=== PATIENT | female | born 1955 | race Caucasian/White ===

== ENCOUNTER 2016-05-26 07:56 | Day surgery (SDC) | payer BC, OTHER ==
[~2016-05-26 07:56] MED LIST: Cefuroxime 10 MG/ML SYRINGE EYERT SCH; Lidocaine 1% PF 2 ML SDV INJECT SCH; Pilocarpine 4% Ophth Soln 15 ML Bot EYERT SCH; Proparacaine 0.5% Ophth Soln 15 ML Bottle EYEBOTH SCH; Tetracaine 0.5% 2 ML Bottle EYERT SCH
[2016-05-26] MEDS: Polymyxin B/Trimethoprim 10 ML Bottle EYERT SCH ×3 (08:28→10:05)
[2016-05-26] MEDS: Brimonidine 0.2% Ophth Soln 5 ML Bottle EYERT SCH ×3 (08:33→10:05)
[2016-05-26] MEDS: Phenylephrine 2.5% Ophth Soln 2 ML Bot EYERT SCH ×5 (08:36→09:50)
--- NOTE | 2016-05-26 09:12 | PCM.PREANE ---
Preanesthetic Assessment - Anesthesia/Transfusion/Family Hx Anesthesia History: Prior Anesthesia Without Reaction Family History of Anesthesia Reaction: No Transfusion History: No Prior Transfusion(s) Intubation History: Unknown - Review of Systems General: No Symptoms Pulmonary: No Symptoms Gastrointestinal: No symptoms Neurological: Numbness (lower extremities, left pinky finger numb for years ) Other: Reports: None - Physical Assessment NPO Status Date: 05/25/16 NPO Status Time: 18:30 O2 Sat by Pulse Oximetry: 99 Respiratory Rate: 16 Vital Signs: Last Vital Signs Temp 36.1 C 05/26/16 08:05 Pulse 61 05/26/16 08:05 Resp 16 05/26/16 08:05 BP 133/63 05/26/16 08:05 Pulse Ox 99 05/26/16 08:05 Height: 1.6 m Weight: 68.039 kg ASA Class: 2 Mental Status: Alert & Oriented x3 Airway Class: Mallampati = 1 Dentition: Reports: Normal Dentition Thyro-Mental Finger Breadths: 3 Mouth Opening Finger Breadths: 5 ROM/Head Extension: Full Lungs: Clear to auscultation, Normal respiratory effort Cardiovascular: Regular Rate, Regular Rhythm - Allergies Allergies/Adverse Reactions: Allergies Allergy/AdvReac Type Severity Reaction Status Date / Time latex Allergy Cannot Verified 05/25/16 13:10 Remember nickel Allergy Cannot Verified 05/25/16 13:10 Remember Penicillins Allergy Cannot Verified 05/25/16 13:10 Remember hay fever Allergy Cannot Uncoded 05/25/16 13:10 Remember - Blood Blood Available: No - Anesthesia Plan Pre-Op Medication Ordered: None - Acknowledgements Anesthesia Type Planned: MAC Pt an Appropriate Candidate for the Planned Anesthesia: Yes Alternatives and Risks of Anesthesia Discussed w Pt/Guardian: Yes Pt/Guardian Understands and Agrees with Anesthesia Plan: Yes PreAnesthesia Questionnaire HEENT History: Reports: None Cardiovascular History: Reports: None Respiratory History: Reports: None Gastrointestinal History: Reports: None Genitourinary History: Reports: None Other OB/BYN History: postmenapausal Musculoskeletal History: Reports: None Neurological History: Reports: None Psychiatric History: Reports: None Endocrine/Metabolic History: Reports: Hypothyroidism Hematologic History: Reports: None Immunologic History: Reports: None Oncologic (Cancer) History: Reports: None Dermatologic History: Reports: None - Infectious Disease History Infectious Disease History: Reports: None - Past Surgical History Other Head Surgeries/Procedures: multiple, reviewed - SUBSTANCE USE Smoking Status *Q: Never Smoker Second Hand Smoke Exposure: Yes Recreational Drug Use History: No - HOME MEDS Home Medications: Home Meds Calcium Carbonate/Vitamin D3 [Caltrate 600 + D Soft Chew Tab] 1 tab PO DAILY [History] Fexofenadine [Brittany] 180 mg PO DAILY 05/25/16 [History] Levothyroxine Sodium [Levothyroxine Sodium] 75 mcg PO DAILY 05/25/16 [History] Lutein 20 mg PO DAILY 05/25/16 [History] Magnesium 250 mg PO DAILY 05/25/16 [History] Multivitamin [Multivitamins] 1 tab PO DAILY 05/25/16 [History] - CURRENT (IN HOUSE) MEDS Current Meds: Current Medications Brimonidine Tartrate (Alphagan 0.2% Ophth Soln) 0 ml EYERT ASDIRECTED SARINA Stop: 05/26/16 18:00 Last Admin: 05/26/16 08:33 Dose: 1 drop Cefuroxime Sodium (Zinacef) 0 mg EYERT ASDIRECTED SARINA Stop: 05/26/16 18:00 Lidocaine HCl (Xylocaine-Mpf 1%) 1 ml INJECT ASDIRECTED SARINA Stop: 05/26/16 18:00 Phenylephrine HCl (Gerardo-Synephrine 2.5% Ophth Soln) 0 ml EYERT ASDIRECTED SARINA Stop: 05/26/16 18:00 Last Admin: 05/26/16 08:53 Dose: 1 drop Pilocarpine HCl (Pilocar 4% Ophth Soln) 0 ml EYERT ASDIRECTED SARINA Stop: 05/26/16 18:00 Polymyxin/Trimethoprim Sulfate (Polytrim Ophth Soln) 0 ml EYERT ASDIRECTED SARINA Stop: 05/26/16 18:00 Last Admin: 05/26/16 09:05 Dose: 1 drop Proparacaine HCl (Proparacaine 0.5% Ophth Soln) 0 ml EYEBOTH ASDIRECTED SARINA Stop: 05/26/16 18:00 Tetracaine (Pontocaine 0.5% Ophth Drops) 0 ml EYERT ASDIRECTED SARINA Stop: 05/26/16 18:00 Tropicamide (Mydriacyl 1% Ophth Soln) 0 ml EYERT ASDIRECTED SARINA Stop: 05/26/16 18:00 Last Admin: 05/26/16 08:58 Dose: 1 drop
--- NOTE | 2016-05-26 10:08 | PCM48HPAN ---
Post Anesthesia Note - EVALUATION WITHIN 48HRS OF ANESTHETIC Vital Signs in Normal Range: Yes Patient Participated in Evaluation: Yes Respiratory Function Stable: Yes Airway Patent: Yes Cardiovascular Function Stable: Yes Hydration Status Stable: Yes Pain Control Satisfactory: Yes Nausea and Vomiting Control Satisfactory: Yes Mental Status Recovered: Yes
[2016-05-26 10:33] VITALS: BP 113/70
== END 2016-05-26 10:20 | disposition home or self-care (01) ==
LOC: JD.SDS 07:56
PROVIDERS: ATTEND Ophthalmology
DX: H26.9 Unspecified cataract (principal); Z98.890 Other specified postprocedural states; E07.9 Disorder of thyroid, unspecified; Z79.899 Other long term (current) drug therapy
CPT/HCPCS: 66984; A9270; C1780; J0697

== ENCOUNTER 2017-02-17 10:11 | Emergency (ER) | payer OTHER, BC ==
[2017-02-17 10:42] VITALS: BP 136/91
--- NOTE | 2017-02-17 10:53 | EDM.PDOC ---
ED HPI GENERAL MEDICAL PROBLEM - General Chief Complaint: Upper Extremity Injury/Pain Stated Complaint: FALL, LEFT SHOULDER PAIN Time Seen by Provider: 02/17/17 10:53 Source of Information: Reports: Patient - History of Present Illness INITIAL COMMENTS - FREE TEXT/NARRATIVE: Patient is here today for evaluation of left chest and shoulder pain. She states that around 9:30 this morning she was walking outside and slipped on the ice. She states that she primarily landed on her left shoulder and was unable to move this due to significant pain immediately. Patient notes numbness and tingling to her left upper extremity into her hand, she is able to move this but has pain up through her shoulder. She is unable to move her shoulder at all. No elbow pain whatsoever. She notes mild pain to right thumb. She states that she feels like she hit the left side of her face, states that this was a bit of a "soft" as her shoulder to most of the impact. She denies any facial pain or headache. She did not lose consciousness. Left Shoulder Pain Score (Numeric/FACES): 10 - Related Data Allergies Allergy/AdvReac Type Severity Reaction Status Date / Time latex Allergy Redness Verified 02/17/17 10:43 nickel Allergy Other Verified 02/17/17 10:43 Penicillins Allergy Rash Verified 02/17/17 10:43 hay fever Allergy Cannot Uncoded 02/17/17 10:43 Remember Home Meds: Home Meds Calcium Carbonate/Vitamin D3 [Caltrate 600 + D Soft Chew Tab] 1 tab PO DAILY [History] Fexofenadine [Brittany] 180 mg PO ASDIRECTED 05/25/16 [History] Levothyroxine Sodium [Levothyroxine Sodium] 75 mcg PO DAILY 05/25/16 [History] Lutein 20 mg PO DAILY 05/25/16 [History] Magnesium 250 mg PO DAILY 05/25/16 [History] Multivitamin [Multivitamins] 1 tab PO DAILY 05/25/16 [History] Acetaminophen/HYDROcodone [[place] 325-5 MG] 1 tab PO Q4H #30 tablet 02/17/17 [Rx] Past Medical History HEENT History: Reports: None Cardiovascular History: Reports: None Respiratory History: Reports: None Gastrointestinal History: Reports: None Genitourinary History: Reports: None Other OB/BYN History: postmenapausal Musculoskeletal History: Reports: None Neurological History: Reports: None Psychiatric History: Reports: None Endocrine/Metabolic History: Reports: Hypothyroidism Hematologic History: Reports: None Immunologic History: Reports: None Oncologic (Cancer) History: Reports: None Dermatologic History: Reports: None - Infectious Disease History Infectious Disease History: Reports: None Social & Family History - Tobacco Use Smoking Status *Q: Never Smoker Second Hand Smoke Exposure: Yes - Caffeine Use Caffeine Use: Reports: None - Recreational Drug Use Recreational Drug Use: No Review of Systems - Review of Systems Review Of Systems: See Below Constitutional: Reports: No Symptoms Respiratory: Reports: No Symptoms Cardiovascular: Reports: No Symptoms Musculoskeletal: Reports: Other (Left shoulder pain) Skin: Reports: No Symptoms Neurological: Reports: Other (Numbness and tingling to left upper extremity/ hand.) Psychiatric: Reports: No Symptoms ED EXAM, GENERAL - Physical Exam Exam: See Below Exam Limited By: No Limitations General Appearance: Alert, WD/WN, Mild Distress Peripheral Pulses: 2+: Radial (L) Extremities: Normal Capillary Refill, Other (Left shoulder without obvious deformity. The shoulder is swollen and a bit raised. She is unable to move this at all due to extreme pain.) Neurological: Alert, Oriented, No Motor/Sensory Deficits (Patient notes numbness , good sensation to light touch and she is able to move her hand. She does have pain to her shoulder with hand movement.) Psychiatric: Normal Affect Skin Exam: Warm, Dry, Intact Course - Vital Signs Last Recorded V/S: Last Vital Signs Temp 97.2 F 02/17/17 10:38 Pulse 71 02/17/17 10:38 Resp 18 02/17/17 10:38 BP 136/91 H 02/17/17 10:38 Pulse Ox 98 02/17/17 10:38 - Orders/Labs/Meds Orders: Active Orders 24 hr Category Date Time Status Shoulder Comp Lt [CR] Stat Exams 02/17/17 11:29 Taken Meds: Medications Discontinued Medications Generic Name Dose Route Start Last Admin Trade Name Freq PRN Reason Stop Dose Admin Hydromorphone HCl 0.5 mg 02/17/17 11:02 02/17/17 11:19 Dilaudid IVPUSH 02/17/17 11:03 0.5 mg ONETIME ONE Administration - Re-Assessments/Exams Free Text/Narrative Re-Assessment/Exam: Will give patient 0.5 mg of Dilaudid for pain management obtained x-ray of left shoulder. 02/17/17 11:16 X-ray reviewed with Dr. Roman and treatment plan formulated. Xray demonstrates a non-displaced fracture of the proximal humerus, no dislocation. Patient will be placed in a shoulder sling and will follow-up with Dr. Wasserman this week. Physical therapy order was given as well to prevent adhesive capsulitis. Recommend ice, ibuprofen, hydrocodone will be given for breakthrough pain as well. She will follow-up with orthopedics, return to emergency room if needed. 02/17/17 12:37 Departure - Departure Time of Disposition: 12:30 Disposition: Home, Self-Care 01 Condition: Fair Clinical Impression: Fracture of humerus Qualifiers: Encounter type: initial encounter Humerus Location: proximal Fracture type: closed Fracture alignment: nondisplaced - Discharge Information Prescriptions: Acetaminophen/HYDROcodone [[place] 325-5 MG] 1 tab PO Q4H #30 tablet Instructions: How to Use a Sling, [id number], Shoulder Pain, [id number] Referrals: Radha Nelson MD [Primary Care Provider] - Forms: ED Department Discharge Additional Instructions: You have a non-displaced fracture of your humerus. I recommend ibuprofen 600 mg every 8 hours. Ice 15 minutes every 2-3 hours as needed. Hydrocodone for breakthrough pain. Call to schedule an appointment with orthopedics for follow-up with Dr. Wasserman at [phone] I recommend starting physical therapy to keep your shoulder moving next week as well. Try to move her shoulder around in all directions at least twice daily to prevent frozen shoulder. Follow-up with orthopedics or certainly return to the emergency room if needed. - My Orders Last 24 Hours: My Active Orders 02/17/17 11:29 Shoulder Comp Lt [CR] Stat - Assessment/Plan Last 24 Hours: My Active Orders 02/17/17 11:29 Shoulder Comp Lt [CR] Stat
[2017-02-17] MEDS ORDERED: HYDROmorphone 0.5 MG/0.5 ML Syringe IVPUSH ONE (11:02)
--- NOTE | 2017-02-17 13:19 | CR ---
Left shoulder: Two views of the left shoulder were obtained. Fracture is identified at the base of the greater tuberosity. Surgical neck fracture also suspected which is nondisplaced. No additional abnormality is seen. Impression: 1. Fracture as described above. Diagnostic code #3
== END 2017-02-17 13:05 | disposition home or self-care (01) ==
LOC: JD.ED 10:11
DX: S42.255A Nondisplaced fracture of greater tuberosity of left humerus, initial encounter for closed fracture (principal); Z91.040 Latex allergy status; Z88.0 Allergy status to penicillin; Z79.899 Other long term (current) drug therapy; W00.9XXA Unspecified fall due to ice and snow, initial encounter
CPT/HCPCS: 73030; 96374; 99283; J1170; 99284

== ENCOUNTER 2019-09-03 14:59 | Emergency (ER) | payer MEDICARE, OTHER ==
[2019-09-03 15:17] VITALS: BP 170/78; PULSE 85
[2019-09-03] MEDS ORDERED: Sodium Chloride 0.9% 10 ML Syringe FLUSH PRN (15:19)
--- NOTE | 2019-09-03 15:46 | EDM.PDOC ---
ED HPI GENERAL MEDICAL PROBLEM - General Chief Complaint: Respiratory Problem Stated Complaint: CHEST PAIN Time Seen by Provider: 09/03/19 15:12 Source of Information: Reports: Patient History Limitations: Reports: No Limitations - History of Present Illness INITIAL COMMENTS - FREE TEXT/NARRATIVE: Patient is a 64-year-old female who presents to the emergency department with complaints of cough and intermittent upper back pain. Symptoms started yesterday. She did have some mild midsternal chest pain yesterday as well, however that resolved. Patient was seen at the [facility] walk[facility]in [facility] prior to coming to the ER with a request to have a coronavirus test done because her was exposed approximately 10 days ago. She states that the walk-in clinic required her to come here because of the chest pain she had yesterday. Patient denies any shortness of breath, but does have a mild nonproductive cough. She has had no known fever but did states she did feel chilled yesterday. Chest pain is not currently present. Denies any sore throat, nausea, vomiting, or diarrhea. Back Pain Score (Numeric/FACES): 3 - Related Data Allergies Allergy/AdvReac Type Severity Reaction Status Date / Time latex Allergy Redness Verified 09/03/19 15:17 nickel Allergy Other Verified 09/03/19 15:17 Penicillins Allergy Rash Verified 09/03/19 15:17 hay fever Allergy Cannot Uncoded 09/03/19 15:17 Remember Home Meds: Home Meds Calcium Carbonate/Vitamin D3 [Caltrate 600 + D Soft Chew Tab] 1 tab PO DAILY 05/25/16 [History] Fexofenadine [Brittany] 180 mg PO ASDIRECTED 05/25/16 [History] Levothyroxine Sodium 75 mcg PO DAILY 05/25/16 [History] Lutein 20 mg PO DAILY 05/25/16 [History] Magnesium 250 mg PO DAILY 05/25/16 [History] Multivitamin [Multivitamins] 1 tab PO DAILY 05/25/16 [History] Acetaminophen/HYDROcodone [[place] 325-5 MG] 1 tab PO Q4H #30 tablet 02/17/17 [Rx] Past Medical History HEENT History: Reports: None Cardiovascular History: Reports: None Respiratory History: Reports: None Gastrointestinal History: Reports: None Genitourinary History: Reports: None Other KITCH[employer]TER History: postmenapausal Musculoskeletal History: Reports: None Neurological History: Reports: None Psychiatric History: Reports: None Endocrine/Metabolic History: Reports: Hypothyroidism Hematologic History: Reports: None Immunologic History: Reports: None Oncologic (Cancer) History: Reports: None Dermatologic History: Reports: None - Infectious Disease History Infectious Disease History: Reports: None Social & Family History - Tobacco Use Smoking Status *Q: Never Smoker Second Hand Smoke Exposure: No - Caffeine Use Caffeine Use: Reports: None - Recreational Drug Use Recreational Drug Use: No ED ROS GENERAL - Review of Systems Review Of Systems: See Below Constitutional: Reports: Chills. Denies: Fever, Weakness, Decreased Appetite HEENT: Reports: No Symptoms. Denies: Ear Pain, Sinus Problem, Throat Pain Respiratory: Reports: Cough. Denies: Shortness of Breath, Wheezing Cardiovascular: Reports: No Symptoms. Denies: Chest Pain, Lightheadedness, Palpitations Endocrine: Reports: No Symptoms GI/Abdominal: Reports: No Symptoms. Denies: Abdominal Pain, Diarrhea, Nausea, Vomiting : Reports: No Symptoms. Denies: Dysuria Musculoskeletal: Reports: No Symptoms Skin: Reports: No Symptoms Neurological: Reports: No Symptoms Psychiatric: Reports: No Symptoms Hematologic/Lymphatic: Reports: No Symptoms Immunologic: Reports: No Symptoms Course - Vital Signs Last Recorded V/S: Last Vital Signs Temp 97.9 F 09/03/19 15:12 Pulse 85 09/03/19 15:12 Resp 12 09/03/19 15:12 BP 170/78 H 09/03/19 15:12 Pulse Ox 99 09/03/19 15:12 - Orders/Labs/Meds Orders: Active Orders 24 hr Category Date Time Status EKG Documentation Completion [RC] STAT Care 09/03/19 15:19 Active Peripheral IV Care [RC] . DIRECTED Care 09/03/19 15:20 Active Chest 1V Frontal [CR] Stat Exams 09/03/19 15:20 Taken Sodium Chloride 0.9% [Saline Flush] Med 09/03/19 15:19 Active 10 ml FLUSH ASDIRECTED PRN Peripheral IV Insertion Adult [OM.PC] Stat Oth 09/03/19 15:19 Ordered Medication Orders Sodium Chloride (Saline Flush) 10 ml FLUSH ASDIRECTED PRN PRN Reason: Keep Vein Open Labs: Laboratory Tests 09/03/19 09/03/19 09/03/19 Range/Units 15:45 15:50 15:50 WBC 7.81 (3.98-10.04) K/mm3 RBC 4.67 (3.98-5.22) M/mm3 Hgb 13.8 (11.2-15.7) gm/dl Hct 43.1 (34.1-44.9) % MCV 92.3 (79.4-94.8) fl MCH 29.6 (25.6-32.2) pg MCHC 32.0 L (32.2-35.5) g/dl RDW Std Deviation 48.2 H (36.4-46.3) fL Plt Count 312 (182-369) K/mm3 MPV 9.8 (9.4-12.3) fl Neut % (Auto) 68.8 (34.0-71.1) % Lymph % (Auto) 15.6 L (19.3-51.7) % Eddy % (Auto) 13.6 H (4.7-12.5) % Eos % (Auto) 1.4 (0.7-5.8) Baso % (Auto) 0.6 (0.1-1.2) % Neut # (Auto) 5.37 (1.56-6.13) K/mm3 Lymph # (Auto) 1.22 (1.18-3.74) K/mm3 Eddy # (Auto) 1.06 H (0.24-0.36) K/mm3 Eos # (Auto) 0.11 (0.04-0.36) K/mm3 Baso # (Auto) 0.05 (0.01-0.08) K/mm3 Sodium 141 (136-145) mEq/L Potassium 4.0 (3.5-5.1) mEq/L Chloride 104 (98-107) mEq/L Carbon Dioxide 29 (21-32) mEq/L Anion Gap 12.0 (5-15) BUN 16 (7-18) mg/dL Creatinine 1.1 H (0.55-1.02) mg/dL Est Cr Clr Drug Dosing 41.62 mL/min Estimated GFR (MDRD) 50 (>60) mL/min BUN/Creatinine Ratio 14.5 (14-18) Glucose 110 (80-115) mg/dL Calcium 8.9 (8.5-10.1) mg/dL Total Bilirubin 0.2 (0.2-1.0) mg/dL AST 10 L (15-37) U/L ALT 22 (14-59) U/L Alkaline Phosphatase 70 (46-116) U/L Troponin I 0.025 (0.00-0.056) ng/mL C-Reactive Protein 1.9 H* (<1.0) mg/dL Total Protein 7.7 (6.4-8.2) g/dl Albumin 3.6 (3.4-5.0) g/dl Globulin 4.1 gm/dL Albumin/Globulin Ratio 0.9 L (1-2) SARS Virus RNA (PCR) Negative (NEGATIVE) Meds: Medications Generic Name Dose Route Start Last Admin Trade Name Freq PRN Reason Stop Dose Admin Sodium Chloride 10 ml 09/03/19 15:19 Saline Flush FLUSH ASDIRECTED PRN Keep Vein Open - Re-Assessments/Exams Free Text/Narrative Re-Assessment/Exam: 09/03/19 17:22 Pt workup was grossly unremarkable. WBC's were normal. Troponin was negative. EKG was normal. CXR was normal. Covid19 test was negative. VS are stable. Discussed results with pt. Recommended that she continue to self isolate until symptoms resolve. Return to ER as needed. Discharge instructions as documented. Departure - Departure Time of Disposition: 17:24 Disposition: Home, Self-Care 01 Condition: Good Clinical Impression: Viral respiratory illness - Discharge Information *PRESCRIPTION DRUG MONITORING PROGRAM REVIEWED*: No *COPY OF PRESCRIPTION DRUG MONITORING REPORT IN PATIENT AARON: No Instructions: Viral Respiratory Infection, [id number] Referrals: Radha Nelson MD [Primary Care Provider] - Forms: ED Department Discharge Additional Instructions: You were seen in the emergency department to day due to cough, back pain, and some chest pain yesterday. Your workup included blood work, a chest xray, an EKG of your heart and a coronavirus test. Your workup was found to be normal. You are not having a heart attack. Your coronavirus test was negative. You are likely suffering from a viral respiratory infection. Recommend that you continue to isolate until your symptoms resolve. You may use over the counter tylenol or ibuprofen as needed. Return to the ER for worsening symptoms as needed. Sepsis Event Note (ED) - Evaluation Sepsis Screening Result: No Definite Risk - Focused Exam Vital Signs: Vital Signs Temp Pulse Resp BP Pulse Ox 09/03/19 15:12 97.9 F 85 12 170/78 H 99 - My Orders Last 24 Hours: My Active Orders 09/03/19 15:19 EKG Documentation Completion [RC] STAT Sodium Chloride 0.9% [Saline Flush] 10 ml FLUSH ASDIRECTED PRN Peripheral IV Insertion Adult [OM.PC] Stat 09/03/19 15:20 Peripheral IV Care [RC] . DIRECTED Chest 1V Frontal [CR] Stat - Assessment/Plan Last 24 Hours: My Active Orders 09/03/19 15:19 EKG Documentation Completion [RC] STAT Sodium Chloride 0.9% [Saline Flush] 10 ml FLUSH ASDIRECTED PRN Peripheral IV Insertion Adult [OM.PC] Stat 09/03/19 15:20 Peripheral IV Care [RC] . DIRECTED Chest 1V Frontal [CR] Stat
--- NOTE | 2019-09-04 10:51 | CR ---
Chest: Portable view of the chest was obtained. Comparison: Prior chest x-ray is not available Heart size and mediastinum are within normal limits for portable technique. Lungs are clear with no acute parenchymal change. Bony structures are grossly intact. Impression: 1. Nothing acute is appreciated on portable chest x-ray. Diagnostic code #1 This report was dictated in MDT
== END 2019-09-03 17:30 | disposition home or self-care (01) ==
LOC: JD.ED 14:59
DX: J98.8 Other specified respiratory disorders (principal); B34.9 Viral infection, unspecified; E03.9 Hypothyroidism, unspecified; Z91.040 Latex allergy status; Z88.0 Allergy status to penicillin; Z91.048 Other nonmedicinal substance allergy status; Z88.8 Allergy status to other drugs, medicaments and biological substances; Z79.899 Other long term (current) drug therapy
CPT/HCPCS: 36415; 71045; 80053; 84484; 85025; 86140; 93005; 99284; U0002

== ENCOUNTER 2022-11-26 11:02 | Day surgery (SDC) | payer MEDICARE, OTHER ==
[2022-11-26] MEDS: Polymyxin B/Trimethoprim 10 ML Bottle EYELF SCH ×3 (09:48→11:45)
[2022-11-26] MEDS: Brimonidine 0.2% Ophth Soln 5 ML Bottle EYELF SCH ×3 (09:53→11:45)
[2022-11-26] MEDS: Phenylephrine 2.5% Ophth Soln 2 ML Bot EYELF SCH ×5 (09:58→11:18)
[2022-11-26] MEDS: Tropicamide 1% Ophth Soln 3 ML Bottle EYELF SCH ×4 (10:03→10:47)
[~2022-11-26 11:02] MED LIST changes: +Cefuroxime 10 MG/ML SYRINGE EYELF SCH; -Cefuroxime 10 MG/ML SYRINGE EYERT SCH; +Pilocarpine 4% Ophth Soln 15 ML Bot EYELF SCH; -Pilocarpine 4% Ophth Soln 15 ML Bot EYERT SCH; -Proparacaine 0.5% Ophth Soln 15 ML Bottle EYEBOTH SCH; -Tetracaine 0.5% 2 ML Bottle EYERT SCH
[2022-11-26] MEDS: Tetracaine HCl/PF 0.5% 4 ML Bottle EYEBOTH SCH ×4 (11:10→11:25)
[2022-11-26 11:58] VITALS: BP 144/84; PULSE 67
== END 2022-11-26 11:54 ==
LOC: JD.SDS 11:02
PROVIDERS: ATTEND Ophthalmology
DX: H25.812 Combined forms of age-related cataract, left eye (principal); H52.31 Anisometropia; H35.3131 Nonexudative age-related macular degeneration, bilateral, early dry stage; H35.371 Puckering of macula, right eye; H43.13 Vitreous hemorrhage, bilateral; H43.393 Other vitreous opacities, bilateral; E03.9 Hypothyroidism, unspecified; M19.90 Unspecified osteoarthritis, unspecified site; E07.9 Disorder of thyroid, unspecified; G62.9 Polyneuropathy, unspecified; Z98.41 Cataract extraction status, right eye; Z96.1 Presence of intraocular lens; Z83.518 Family history of other specified eye disorder; Z79.890 Hormone replacement therapy; Z79.899 Other long term (current) drug therapy; Z88.0 Allergy status to penicillin; Z91.040 Latex allergy status; Z91.048 Other nonmedicinal substance allergy status
CPT/HCPCS: 66984; A9270; J0697; V2632; J3490